=== PATIENT | male | born 1970 | race African-American/Black ===

== ENCOUNTER 2017-10-24 09:13 | Emergency (ER) | payer MEDICAID ==
[~2017-10-24] VITALS: Ht 157.5 cm; Wt 57.0 kg
[~2017-10-24 09:13] MED LIST: OMEP20TA15
[2017-10-24 09:20] VITALS: BP 118/78
== END 2017-10-24 09:57 | disposition left against medical advice (07) ==
LOC: ER 09:23
DX: R51 Headache (principal); Z53.21 Procedure and treatment not carried out due to patient leaving prior to being seen by health care provider

== ENCOUNTER 2017-11-07 12:04 | Emergency (ER) | payer MEDICAID ==
[~2017-11-07] VITALS: Ht 165.1 cm; Wt 64.0 kg
[2017-11-07] MEDS ORDERED: PROCHLORPERAZINE 10MG/2ML VIAL IV STA (12:38)
[2017-11-07] MEDS ORDERED: DIPHENHYDRAMINE 50MG/ML VIAL IV ONE (12:45)
[2017-11-07 13:11] LABS: EOSINOPHILS % 0.6 % (0.0-5.0); HEMATOCRIT. 41.7 % (42.0-52.0); HEMOGLOBIN. 13.9 g/dL (14.0-18.0); LYMPHOCYTES % 28.6 % (20.0-50.0); MEAN CORPUSCULAR HEMOGLOBIN 30.9 pg (28.0-32.0); MEAN CORPUSCULAR VOLUME 92.6 fL (80.0-94.0); MEAN PLATELET VOLUME 9.1 fl (7.4-10.4); MONOCYTES % 8.3 % (2.0-8.0); NEUTROPHILS % 61.5 % (40.0-76.0); PLATELET 226 x1000/uL (130-400); RED BLOOD CELL COUNT 4.51 mill/uL (4.7-6.1); RED CELL DISTRIBUTION WIDTH 14.4 % (11.6-14.6)
[2017-11-07 13:19] LABS: PROTHROMBIN TIME 10.7 sec (9.4-11.6)
[2017-11-07 13:28] LABS: CARBON DIOXIDE 31 mEq/L (21-32); CHLORIDE 100 mEq/L (98-107)
[2017-11-07] MEDS ORDERED: POTASSIUM CHLORIDE 20MEQ TABLET SR PO NR (16:15)
[2017-11-07 17:00] VITALS: BP 142/89
== END 2017-11-07 19:22 | disposition left against medical advice (07) ==
LOC: ER 12:13
DX: R51 Headache (principal); R55 Syncope and collapse; H53.8 Other visual disturbances; I10 Essential (primary) hypertension; F17.200 Nicotine dependence, unspecified, uncomplicated; Z88.6 Allergy status to analgesic agent; Z90.49 Acquired absence of other specified parts of digestive tract
CPT/HCPCS: 36415; 70450; 80053; 85025; 85610; 93005; 96374; 99285; J0780; J1200; Z7610

== ENCOUNTER 2017-11-07 19:43 | Emergency (ER) | payer MEDICAID ==
[~2017-11-07] VITALS: Ht 167.6 cm; Wt 59.0 kg
[2017-11-07] MEDS ORDERED: FAMOTIDINE 20MG/2ML VIAL IV STA (20:15)
[2017-11-07] MEDS ORDERED: DIPHENHYDRAMINE 50MG/ML VIAL IV STA (20:15)
[2017-11-07] MEDS ORDERED: METHYLPREDNISOLONE SOD SUCC 125 MG/2 ML VIAL IV ONE (20:15)
[2017-11-07] MEDS ORDERED: SODIUM CHLORIDE 0.9% 1,000 ML IV ONE (20:15)
[2017-11-07 21:02] VITALS: BP 162/84
== END 2017-11-07 21:25 | disposition home or self-care (01) ==
LOC: ER 21:04
DX: I10 Essential (primary) hypertension (principal); F17.200 Nicotine dependence, unspecified, uncomplicated; Z88.5 Allergy status to narcotic agent
CPT/HCPCS: 96361; 96374; 96375; 99284; J1200; J2930; J3490; J7030